=== PATIENT | female | born 1985 | race Caucasian/White ===

== ENCOUNTER 2019-11-17 15:11 | Inpatient (IN) | payer MEDICARE, OTHER ==
[2019-11-17] MEDS ORDERED: IPRATROPIUM-ALBUTEROL 3 ML NEB INHALATION STA (15:37)
[2019-11-17] MEDS ORDERED: methylPREDNISolone SOD SUCCI 125 MG/2 ML VIAL IV STA (15:37)
[2019-11-17] MEDS ORDERED: SODIUM CHLORIDE 0.9% 1,000 ML IV STA (15:37)
[2019-11-17] MEDS ORDERED: FAMOTIDINE 20 MG/2 ML VIAL IV STA (15:38)
[2019-11-17] MEDS ORDERED: diphenhydrAMINE 50 MG/ML 1 ML VIAL IVP STA (15:38)
[2019-11-17] MEDS ORDERED: ONDANSETRON 4 MG/2 ML VIAL IVP STA (15:38)
--- NOTE | 2019-11-17 15:40 | ED ---
General Adult HPI - General Chief complaint: Shortness of Breath Stated complaint: Chemical inhaled Time Seen by Provider: 11/17/19 15:27 Source: patient, family, RN notes reviewed Mode of arrival: wheelchair Limitations: no limitations - History of Present Illness Initial comments: Patient is a pleasant 34-year-old female presenting to the emergency department with difficulty in breathing. Onset of symptoms was just prior to arrival. Patient was putting chemicals in her pool when she inhaled and had sudden difficulty in breathing and burning in her chest. Patient states dyspnea has persisted since that time. No history of chronic lung problems are similar symptoms previously. Patient does have some nausea and did vomit a small amount. Patient states there is a burning sensation in her chest. - Related Data Allergies Allergy/AdvReac Type Severity Reaction Status Date / Time erythromycin base Allergy Unknown Verified 11/17/19 15:18 morphine Allergy Unknown Verified 11/17/19 15:18 Review of Systems ROS Statement: Those systems with pertinent positive or pertinent negative responses have been documented in the HPI. ROS Other: All systems not noted in ROS Statement are negative. Constitutional: Denies: fever Eyes: Denies: eye pain ENT: Denies: ear pain Respiratory: Reports: cough, dyspnea Cardiovascular: Reports: as per HPI Endocrine: Denies: fatigue Gastrointestinal: Reports: nausea. Denies: abdominal pain Genitourinary: Denies: dysuria Musculoskeletal: Denies: back pain Skin: Denies: rash Neurological: Denies: weakness Past Medical History Past Medical History: No Reported History History of Any Multi-Drug Resistant Organisms: None Reported Past Surgical History: Back Surgery Additional Past Surgical History / Comment(s): neck Past Psychological History: No Psychological Hx Reported Smoking Status: Never smoker Past Alcohol Use History: Occasional Past Drug Use History: None Reported General Exam Limitations: no limitations General appearance: alert Head exam: Present: normocephalic Eye exam: Present: normal appearance ENT exam: Present: normal oropharynx Neck exam: Present: normal inspection Respiratory exam: Present: normal lung sounds bilaterally Cardiovascular Exam: Present: tachycardia GI/Abdominal exam: Present: soft. Absent: tenderness Extremities exam: Present: normal inspection Neurological exam: Present: alert Psychiatric exam: Present: anxious Skin exam: Present: normal color Course Vital Signs 11/17/19 11/17/19 11/17/19 15:15 15:51 16:02 Temperature 98.7 F Pulse Rate 113 H 110 H 110 H Respiratory 26 H Rate Blood Pressure 145/68 O2 Sat by Pulse 96 Oximetry 11/17/19 16:46 Temperature Pulse Rate 97 Respiratory 26 H Rate Blood Pressure 132/98 O2 Sat by Pulse 100 Oximetry Medical Decision Making - Medical Decision Making Patient presents with pneumonitis from inhaling, colds. Patient reevaluated and improved following treatment however not back to normal. Patient states only 50% improved. Case was discussed with Dr. Fuchs covering for hospital call also reviewed x-ray and will admit. She agrees with only steroids at this time. - Radiology Data Radiology results: image reviewed (Chest x-ray shows bilateral lower patchy infiltrates.) Disposition Clinical Impression: Pneumonitis Disposition: ADMITTED IP TO THIS HOSP Is patient prescribed a controlled substance at d/c from ED?: No Referrals: Dmitry Rivero DO [Primary Care Provider] - 1-2 days Decision Time: 17:42
--- NOTE | 2019-11-17 16:23 | XR ---
EXAMINATION TYPE: XR chest 1V portable DATE OF EXAM: 11/17/2019 COMPARISON: NONE HISTORY: Chest pain TECHNIQUE: Single frontal view of the chest is obtained. FINDINGS: Patchy basilar infiltrates noted. Correlate for pneumonia. The cardiac silhouette size is within norm al limits. The osseous structures are intact. IMPRESSION: 1. Patchy basilar infiltrates noted. Correlate for pneumonia.
[2019-11-17] MEDS ORDERED: HYDROmorphone 1 MG/ML 1 ML SYRINGE IVP STA (17:42)
[2019-11-17] MEDS ORDERED: IPRATROPIUM-ALBUTEROL 3 ML NEB INHALATION PRN (17:43)
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
[2019-11-17] MEDS: SODIUM CHLORIDE 0.9% 1,000 ML IV SCH (21:11)
[2019-11-17] MEDS: methylPREDNISolone SOD SUCCI 125 MG/2 ML VIAL IV SCH (21:11)
[2019-11-17] MEDS: IPRATROPIUM-ALBUTEROL 3 ML NEB INHALATION SCH (21:22)
[2019-11-17] MEDS ORDERED: ALPRAZolam 0.25 MG TAB PO PRN (23:33)
[2019-11-18] MEDS: HEPARIN SODIUM,PORCINE 5,000 UNIT/ML 1 ML VIAL SQ SCH ×4 (00:16→23:37)
[2019-11-18] MEDS: methylPREDNISolone SOD SUCCI 125 MG/2 ML VIAL IV SCH ×5 (00:47→23:37)
[2019-11-18] MEDS: SODIUM CHLORIDE 0.9% 1,000 ML IV SCH ×3 (05:24→23:13)
[2019-11-18] MEDS: IPRATROPIUM-ALBUTEROL 3 ML NEB INHALATION SCH ×4 (09:19→20:55)
--- NOTE | 2019-11-18 10:43 | XR ---
EXAMINATION TYPE: XR chest 1V DATE OF EXAM: 11/18/2019 COMPARISON: 11/17/2019 HISTORY: Dyspnea TECHNIQUE: Single frontal view of the chest is obtained. FINDINGS: Patchy bibasilar airspace disease is similar although may be exaggerated by overlying soft tissues. The cardiac silhouette size is within normal limits. The osseous structures are intact. Dextroscoliotic curvature of the thoracic spine noted. Cervical fusion device noted. Metallic density in the upper abdomen may be external to the patient. IMPRESSION: 1. Bibasilar airspace disease. This could be exaggerated by overlying soft tissues and follow-up late ral radiograph is recommended for further assessment. 2. Metallic density in the upper abdomen may be external to the patient. Attention on follow-up exams .
[2019-11-18 11:54] LABS: HCT 39.2 % (34.0-46.0); MCH 30.9 pg (25.0-35.0); MCHC 33.3 g/dL (31.0-37.0); MCV 92.8 fL (80.0-100.0); Mean Platelet Volume 7.9; Platelet Count 240 k/uL (150-450); RBC 4.23 m/uL (3.80-5.40); WBC 8.2 k/uL (3.8-10.6)
[2019-11-18 12:14] LABS: African American GFR (CKD) >90 (>60 ml/min/1.73 sqM); Anion Gap 9 mmol/L; Blood Urea Nitrogen 10 mg/dL (7-17); Calcium 9.6 mg/dL (8.4-10.2); Carbon Dioxide 21 mmol/L (22-30); Chloride 108 mmol/L (98-107); Glucose 177 mg/dL (74-99); Magnesium 2.4 mg/dL (1.6-2.3); Non-African American GFR(CKD) >90 (>60 ml/min/1.73 sqM); Sodium 138 mmol/L (137-145)
--- NOTE | 2019-11-18 14:50 | P.PN ---
Subjective Progress Note Date: 11/18/19 Principal diagnosis: shortness of breath Patient is a 34-year-old female with no significant past medical history who presented to the emergency department with sudden onset shortness of breath and cough after add muriatic acid while adding it to her pool. On arrival to the ED she was found to have a heart rate of 113 and a respiratory rate of 26. Chest x-ray showed bilateral interstitial infiltrate. There is concern for chemical pneumonitis. She was started on bronchodilators, steroids, and O2 supplementation. She was placed in observation. On morning of 11/17 she was still having significant dyspnea and shortness of breath. Her chest x-ray appeared worse than on presentation. She is still having a cough. She was unable to swallow more than liquids. She has been unable to ambulate a further distance than 10 feet. Patient seen and examined at bedside. She complains of continued dyspnea that was slightly improved since yesterday, she states that yesterday she felt as though there was "1000 pound man sitting on her chest and today it feels like there is an 800 pound man sitting on her chest". She continues to have a cough now productive of yellowish sputum. She continues to feel burning when she takes a deep breath. She is unable to ambulate to the bathroom without getting significantly dyspneic. She develops for word conversational dyspnea. She states that when trying to swallow everything is painful other than cold liquids, popsicles, or ice cream. She is still feels very weak and faint. Objective - Vital Signs Vital signs: Vital Signs Temp 98.2 F 11/18/19 12:18 Pulse 80 11/18/19 13:31 Resp 16 11/18/19 12:18 BP 142/64 11/18/19 12:18 Pulse Ox 96 11/18/19 12:45 Intake & Output 11/17/19 11/18/19 11/18/19 18:59 06:59 18:59 Weight 54.431 kg 59.738 kg Other: Voiding Method Toilet # Voids 3 - Exam General: non toxic, no distress, appears at stated age Derm: warm, dry Head: atraumatic, normocephalic, symmetric Eyes: EOMI, no lid lag, anicteric sclera Mouth: no lip lesion, mucus membranes moist Cardiovascular: S1S2 reg, no murmur, positive posterior tibial pulse bilateral, Lungs: Crackles bilateral L>R , no accessory muscle use, 3 word conversational dyspnea Abdominal: soft, nontender to palpation, no guarding, no appreciable organomegaly Ext: no gross muscle atrophy, no edema, no contractures Neuro: CN II-XI grossly intact, no focal neuro deficits Psych: Alert, oriented, appropriate affect - Labs CBC & Chem 7: 11/18/19 11:39 11/18/19 11:39 Labs: Abnormal Lab Results - Last 24 Hours (Table) 11/18/19 Range/Units 11:39 Chloride 108 H (98-107) mmol/L Carbon Dioxide 21 L (22-30) mmol/L Glucose 177 H (74-99) mg/dL Magnesium 2.4 H (1.6-2.3) mg/dL Assessment and Plan Assessment: Chemical Pneumonitis secondary to inhaliation of Muriatic Acid - Supportive care with Oxygen - IVF - IV steroids - Bronchodilators - repeat CXR in AM, TOday CXR with worsening b/l interstitial infiltrated and reviewed by id Acute respiratorey failure on arrival - treatment as above. Acidosis - due to work of breathing - treatment as above Patient still with significant shortness of breath, 3 word conversational dyspnea, she is unable to ambulate to the bathroom without significant respiratory distress. Her chest x-ray does show some progression of the chemical pneumonitis. At this point in time patient is unsafe to discharge home as she is having progression of the chemical reaction, she has requiring continued monitoring for possible increased work of breathing, respiratory failure, possible need for mechanical ventilation. Patient has been changed to inpatient within anticipated stay of greater than 2 midnights in total. DVT prophylaxis: SCDs Discussed with: Patient, nursing Anticipated discharge: 1-[address]: home A total of 35 minutes was spent on the care of this complex patient more than 50% of the time was spent in counseling and care coordination.
[2019-11-19] MEDS: methylPREDNISolone SOD SUCCI 125 MG/2 ML VIAL IV SCH (06:12)
[2019-11-19 09:11] VITALS: BP 127/74; RESP 20; TEMP 98.1
[2019-11-19] MEDS: IPRATROPIUM-ALBUTEROL 3 ML NEB INHALATION SCH (09:13)
[2019-11-19 09:24] VITALS: PULSE 82
[2019-11-19] MEDS: SODIUM CHLORIDE 0.9% 1,000 ML IV SCH (10:12)
--- NOTE | 2019-11-19 13:50 | P.DS ---
Providers Date of admission: 11/18/19 14:33 Expected date of discharge: 11/19/19 Attending physician: Gianna Fuchs DO Primary care physician: Dmitry Rivero [facility] Course: Discharge Diagnosis: Chemical Pneumonitis due to inhalation of Muriatic Acid Acute respiratory failure Acidosis Hospital Course: Patient is a 34-year-old female with no significant past medical hi story who presented to the emergency department with sudden onset shortness of breath and cough after add muriatic acid while adding it to her pool. On arrival to the ED she was found to have a heart rate of 113 and a respiratory rate of 26. Chest x-ray showed bilateral interstitial infiltrate. There is concern for chemical pneumonitis. She was started on bronchodilators, steroids, and O2 supplementation. She was placed in observation. On morning of 11/17 she was still having significant dyspnea and shortness of breath. Her chest x-ray appeared worse than on presentation. She is still having a cough. She was unable to swallow more than liquids. She has been unable to ambulate a further distance than 10 feet. On the morning of 11/18 she was much improved and was able to ambulate more in her room, she was less dyspnic and was determined stable for discharge home. She will complete 5 more days of prednisone. She will also have an inhaler for dyspnea. She will follow with her PCP if she has any prolonged symptoms she was given Dr. Montes's information. Patient seen and examined at bedside. Feeling much better today. She is having less tightness in her chest, she still having a cough productive of yellow sputum, she still having some burning with eating on cold liquids. Her breathing is much better. Feeling well wanting to go home. Vital signs reviewed and stable. General: non toxic, no distress, appears at stated age Derm: Diffuse erythematous dermatitis with skin sloughing upper chest and neck, warm, dry Head: atraumatic, normocephalic, symmetric Eyes: EOMI, no lid lag, anicteric sclera Mouth: no lip lesion, mucus membranes moist Cardiovascular: S1S2 reg, no murmur, positive posterior tibial pulse bilateral, Lungs: Coarse breath sounds bilateral improved from yesterday , no accessory muscle use Abdominal: soft, nontender to palpation, no guarding, no appreciable organomegaly Ext: no gross muscle atrophy, no edema, no contractures Neuro: CN II-XI grossly intact, no focal neuro deficits Psych: Alert, oriented, appropriate affect A total of 30 minutes of time were spent preparing this complex discharge summary . Patient Condition at Discharge: Good Plan - Discharge Summary Discharge Rx Participant: Yes New Discharge Prescriptions: New predniSONE [Deltasone] 40 mg PO DAILY 5 Days #10 tab Omeprazole [PriLOSEC] 40 mg PO DAILY #30 cap Albuterol Inhaler [Ventolin Hfa Inhaler] 2 puff INHALATION Q4H PRN #1 inhaler PRN Reason: Shortness Of Breath No Action Topiramate [Topamax] 100 mg PO BID Discharge Medication List Albuterol Inhaler [Ventolin Hfa Inhaler] 2 puff INHALATION Q4H PRN #1 inhaler 11/19/19 [Rx] Omeprazole [PriLOSEC] 40 mg PO DAILY #30 cap 11/19/19 [Rx] Topiramate [Topamax] 100 mg PO BID 11/19/19 [History] predniSONE [Deltasone] 40 mg PO DAILY 5 Days #10 tab 11/19/19 [Rx] Follow up Appointment(s)/Referral(s): Vitor Montes DO [Doctor of Osteopathic Medicine] - 1 Week Dmitry Rivero DO [Primary Care Provider] - 1-2 days (ranay at office said need to call to schedule would not schedule with nurse over phone. ) Patient Instructions/Handouts: Pneumonitis (DC) Activity/Diet/Wound Care/Special Instructions: Activity: as tolerated Diet: liquids for comfort advance as you improve Special Instructions: Seek care if you develop fevers, muscle aches, worsening shortness of breath or cough Stay home and stay safe for the next 2 weekS next dose prednisone 12pm next dose updraft (breathing treatment) 3pm Discharge Disposition: HOME SELF-CARE
== END 2019-11-19 11:08 | disposition home or self-care (01) | DRG 205 ==
LOC: EC 15:11 → 4SSUR 17:43 → 6PED 11-18 04:22 → OBSVTOIN 11-18 14:33
PROVIDERS: ADMIT Internal Medicine; ATTEND Internal Medicine
DX: J68.0 Bronchitis and pneumonitis due to chemicals, gases, fumes and vapors (principal); J96.00 Acute respiratory failure, unspecified whether with hypoxia or hypercapnia; E87.2 Acidosis; Z11.59 Encounter for screening for other viral diseases; F41.9 Anxiety disorder, unspecified; Z79.899 Other long term (current) drug therapy; Z77.098 Contact with and (suspected) exposure to other hazardous, chiefly nonmedicinal, chemicals; Z88.1 Allergy status to other antibiotic agents; Z88.5 Allergy status to narcotic agent
CPT/HCPCS: 71045; 80048; 83735; 85027; 94640; 94760; 96361; 96374; 96375; 96376; 99285

== ENCOUNTER 2020-08-22 11:05 | Outpatient (CLI) | payer OTHER ==
[2020-08-22 11:43] VITALS: BP 132/82; PULSE 97; RESP 15; TEMP 98.4
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
== END 2020-08-22 12:09 | disposition home or self-care (01) ==
LOC: FBPOP 11:05
PROVIDERS: ATTEND Obstetrics & Gynecology
DX: O71.89 Other specified obstetric trauma (principal); Z3A.20 20 weeks gestation of pregnancy
CPT/HCPCS: 99213

== ENCOUNTER → 2022-05-11 | Outpatient (CLI) | payer MEDICARE, OTHER ==
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
== END | disposition home or self-care (01) ==
LOC: RADMRIMAIN 11:43
PROVIDERS: ATTEND Family Medicine
DX: D35.2 Benign neoplasm of pituitary gland (principal); G43.909 Migraine, unspecified, not intractable, without status migrainosus
CPT/HCPCS: 70553; A9585

== ENCOUNTER → 2023-08-26 | Outpatient (CLI) | payer MEDICARE, OTHER ==
--- NOTE | 2023-08-31 13:51 | MR ---
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 COMPARISON: 05/11/2022 TECHNIQUE: Multi planar, multi sequence imaging was performed through the brain. Specialized thin s equences were obtained through the pituitary gland/sella turcica. Pre-and post gadolinium sequences were obtained. IV Contrast: 5 cc Gadavist FINDINGS: Similar-appearing areas of nonenhancement within the pituitary gland posteriorly measuring 3 mm series 1001 image 7 and more inferiorly measuring 2 mm series 1001 image 10 The langley-white junctions, ventricular system, and basal cisterns appear unremarkable. The morphology of the pituitary gland is within normal limits. The pituitary stalk is not deviated. After administ ration of gadolinium, homogeneous pituitary enhancement is seen. The intracranial arterial flow voids are intact. IMPRESSION: Stable areas of nonenhancement within the pituitary gland compared to 05/11/2022 possibly relating to microadenomas.
== END | disposition home or self-care (01) ==
LOC: RADMRIMAIN 14:14
PROVIDERS: ATTEND Family Medicine
DX: D35.2 Benign neoplasm of pituitary gland (principal)
CPT/HCPCS: 70553; A9585